=== PATIENT | male | born 1955 | race Caucasian/White ===

== ENCOUNTER 2024-11-17 05:35 | Inpatient (IN) | payer MEDICARE, BC ==
[~2024-11-17] VITALS: Ht 175.3 cm; Wt 70.5 kg
--- NOTE | 2024-11-17 05:40 | ELECTROCARDIOGRAPH REPORT ---
[facility] Test Date: 2024-11-17 Test Time: 05:37:48 Pat Name: LEILA LOJA Department: EMERGENCY ROOM Room: ORTHO 4020 Gender: M Account Officer: ABDIAS : 1955 Requested By: ROBLES LOPEZ Order Number: [id number] Reading MD: Dr. Froilan Rocha Measurements Intervals [place] Rate: 40 P: 52 OK: 206 QRS: 1 QRSD: 177 T: 182 QT: 578 QTc: 472 Interpretive Statements Sinus bradycardia Atrial premature complex Probable left atrial enlargement Left bundle branch block Electronically Signed On 11-26-2024 18:47:[address] Froilan Rocha Please click the below link to view image of tracing.
[2024-11-17] MEDS ORDERED: ROSU40TA89 PO (06:01)
[2024-11-17] MEDS ORDERED: LISI5TAB22 PO (06:01)
[2024-11-17 06:15] LABS: MEAN PLATELET VOLUME 9.8 FL (7.4-10.4); RED CELL DISTRIBUTION WIDTH 13.4 % (11.5-14.5)
--- NOTE | 2024-11-17 06:23 | Physician Documentation ---
History of Present Illness General Chief Complaint: Dizziness Stated Complaint: DIZZY M BLS Time Seen by MD: 06:01 Mode of Arrival: POV, EMS History of Present Illness Initial Comments The patient is a 69-year-old man with a history of coronary artery disease (was informed of a silent LA in 2011, two stents in 2012 and two more stents in 2014, all done it mm CR), hypertension (takes lisinopril and hyperlipidemia (takes rosuvastatin) who woke up this morning with dizziness and some shortness of breath. There has been no change in his medications. He is also on low-dose aspirin every other day. He does have some chronic bradycardia. The patient was in his usual state of health yesterday and all his symptoms began this morning. He denies any dark or bloody stools, cough, body aches, chills or fever. The patient's director agency & strategic partnerships is Dr. Nereida Omer. Medication Reconciliation Allergies: Coded Allergies: acetaminophen (Verified Allergy, Mild, HYPOTENSION, 11/17/24) hydrocodone (Verified Allergy, Mild, HYPOTENSION, 11/17/24) Scheduled Lisinopril (Lisinopril), 1 TAB PO DAILY, (Reported) Rosuvastatin Calcium (Rosuvastatin Calcium), 1 TAB PO DAILY, (Reported) Review of Systems ROS Constitutional: Denies chills, fatigue, fever, weight gain or weight loss. HEENT: Denies hearing loss, sinus pressure or visual changes. Respiratory: Mild shortness of breath. Cardiovascular: Denies chest pain, pain while walking (claudication), edema or palpitations. Gastrointestinal: Denies abdominal pain, blood in stool, constipation, diarrhea, heartburn, loss of appetite, nausea or vomiting. Genitourinary: Denies painful urination (dysuria), excessive amount of urine (polyuria) or urinary frequency. Metabolic/Endocrine: Denies cold intolerance, heat intolerance, excessive thirst (polydipsia) or excessive hunger (polyphagia). Neurological: Dizziness, especially when sitting up, nausea but no vomiting. Psychiatric: Denies anxiety or depression. Integumentary: Denies breast discharge, breast lump, hives, mole change(s), rash or skin lesion. Musculoskeletal: Denies back pain, joint pain, joint swelling or neck pain. Hematologic: Denies easily bleeding, easily bruises, lymphedema or issues with blood clots. Immunologic: Denies food allergies or seasonal allergies. Physical Exam Physical Exam Vital Signs: Temperature: 97.8, Source: Oral, Heart Rate: 52, Respiratory Rate: 12, BP: 127/57, Pulse Oximetry: 97, Weight: 70.450 Oxygen Flow Rate: 0 Physical Exam Physical Exam Vitals and nursing note reviewed. Constitutional: General: Patient is awake, alert, oriented x 4 in no acute distress and well appearing. Speech is clear and lucid. Appearance: Normal appearance. Patient is not ill-appearing, toxic-appearing or diaphoretic. HENT: Head: Normocephalic and atraumatic. Mouth/Throat: Mouth: Mucous membranes are moist. Pharynx: Oropharynx is clear. Eyes: General: No scleral icterus. Extraocular Movements: Extraocular movements intact. Pupils: Pupils are equal, round, and reactive to light. Neck: Supple, no Kernig or Brudzinski sign. Cardiovascular: Rate and Rhythm: Normal rate and regular rhythm. Heart sounds: No murmur heard. Pulmonary: Effort: No respiratory distress. Breath sounds: No wheezing, rhonchi or rales. Abdominal: General: There is no distension. Palpations: There is no fluid wave, hepatomegaly or mass. Tenderness: There is no abdominal tenderness. There is no guarding. Musculoskeletal: General: No swelling or deformity. Skin: Coloration: Skin is not jaundiced. Findings: No erythema or rash. Neurological: Mental Status: Patient is alert. Progress Results/Orders Results/Orders Vital Signs 11/17/24 11/17/24 11/17/24 11/17/24 05:37 05:43 05:43 06:01 Temp 97.8 Pulse 41 60 52 Resp 12 16 16 12 B/P (MAP) 139/58 132/54 (80) 127/57 (80) Pulse Ox 99 97 97 O2 Flow Rate 0 11/17/24 11/17/24 07:00 07:11 Pulse 44 Resp 16 B/P (MAP) 122/57 (78) Pulse Ox 98 98 O2 Delivery Room Air* O2 Flow Rate 0 0 FiO2 21 Laboratory Tests Test 11/17/24 05:58 White Blood Count 3.8 L Red Blood Count 4.99 Hemoglobin 14.6 Hematocrit 43.5 Mean Corpuscular Volume 87.2 Mean Corpuscular Hemoglobin 29.3 Mean Corpuscular Hemoglobin Concent 33.6 Red Cell Distribution Width 13.4 Platelet Count 155 Mean Platelet Volume 9.8 Neutrophils (%) (Auto) 62.4 Lymphocytes (%) (Auto) 23.9 Monocytes (%) (Auto) 9.3 Eosinophils (%) (Auto) 3.5 Basophils (%) (Auto) 0.9 Neutrophils # (Auto) 2.4 Lymphocytes # (Auto) 0.9 L Monocytes # (Auto) 0.4 Eosinophils # (Auto) 0.1 Basophils # (Auto) 0.0 CBC Comment Sodium Level 141 Potassium Level 3.8 Chloride Level 107 Carbon Dioxide Level 27.5 Anion Gap 7 L Blood Urea Nitrogen 24 H Creatinine 0.80 Estimated GFR/1.73 m2 > 90 BUN/Creatinine Ratio 30.0 H Glucose Level 126 H Calcium Level 8.5 Magnesium Level 2.1 Troponin I High Sensitivity 34 Pro-B-Type Natriuretic Peptide 898 H Albumin 3.3 L Chemistry Comments Medical Decision Making Findings EKG medically necessary in the evaluation of dizziness/shortness of breath and interpreted by me at the time of patient evaluation. Rhythm is sinus bradycardia with a rate of 40. Left bundle branch block Impression: Abnormal EKG. (I was not able to obtain a prior EKG in order to determine whether his left bundle branch block is new or pre-existing). This 69-year-old male with history of coronary artery disease presents with dizziness and some shortness of breath. He represents a high-risk for ischemia and will need admission. Heart score 5. Departure Disposition: ADMITTED INPATIENT Admitted to Inpatient Unit: to hospitalist Admission Level of Care: PCU with Tele Impression: Primary Impression: Dizziness Additional Impressions: Bradycardia SOB (shortness of breath) Condition: Stable Referrals: NO PRIMARY CARE PROVIDER (PCP) Education Educated: Patient, Family Educated regarding: diagnosis, treatment, prognosis, need for follow up Signature Scribe Signature: . Attestation: JOSE CABRERA MD Nov 17, 2024 06:23
--- NOTE | 2024-11-17 06:31 | RADIOLOGY REPORT ---
CHEST RADIOGRAPH Indication: CP Technique: Single frontal view of the chest was obtained. Comparison: None FINDINGS: Lines and Tubes: None Lungs: There is a density at the left apex. The lungs are otherwise clear. No focal consolidation. Pleura: No effusion.No pneumothorax. Cardiomediastinal contours: UnremarkableBones: No acute osseous abnormality. IMPRESSION: Density at the left apex may represent left 1st rib edge. Consolidation at the left apex is not exclu ded. CT of the chest without contrast is recommended for further evaluation.
[2024-11-17 06:34] LABS: CREATININE 0.80 MG/DL (0.60-1.10); PRO BRAIN NATRIURETIC PEPTIDE 898 PG/ML (0-125); TOTAL CARBON DIOXIDE 27.5 MMOL/L (24-32); eCRCL 84 ML/MIN; eGFR > 90 ML/MIN
[2024-11-17] MEDS ORDERED: potassium Cl 20 mEq SR tablet PO PRN ×2 (07:20)
[2024-11-17] MEDS ORDERED: potassium Cl 40MEQ/1/2NS 520ml 520 ML IV PRN (07:20)
[2024-11-17] MEDS ORDERED: magnesium sulf-water 4G/100mL 100 ML IV PRN (07:20)
[2024-11-17] MEDS ORDERED: magnesium hydroxide 30ml (MOM) UD suspension PO PRN (07:20)
[2024-11-17] MEDS ORDERED: magnesium sulf-water 2g/50mL 50 ML IV PRN (07:20)
[2024-11-17] MEDS ORDERED: magnesium Cl slow-release 64mg tablet PO PRN (07:20)
[2024-11-17] MEDS ORDERED: mag hydrox/Alum hydrox/simeth 30ml oral suspension PO PRN (07:20)
[2024-11-17] MEDS ORDERED: ondansetron/PF 4mg/2ml inj IV PRN (07:20)
[2024-11-17] MEDS: PERFLUTREN PROTEIN-A MICROSPHR (Optison) 0.22 MG/ML 3ML VIAL IV ONE (07:26)
[2024-11-17] MEDS: K and/or MAG REPLACEMENT MC SCH (07:27)
[2024-11-17] MEDS: docusate sod 100mg capsule PO SCH (07:28)
[2024-11-17] MEDS: heparin, porcine 5000 units/ml vial SQ SCH (07:51)
[2024-11-17 13:59] VITALS: BP 109/41; PULSE 46; RESP 16; TEMP 98; O2SAT 96
[2024-11-17 16:53] VITALS: BP_SYST 127; BP_SYST 128; BP_SYST 132; BP_DIAS 50; BP_DIAS 54; BP_DIAS 61; PULSE 57; PULSE 60; PULSE 61
--- NOTE | 2024-11-17 19:32 | HISTORY AND PHYSICAL-Residence ---
History & Physical Providers to CC Resident Creating Document: DEEPALI BARTLETT RES ~ History of Present Illness Reason for Admit\Complaint: Dizziness History of Present Illness A 69 year-old male with a past medical history significant for coronary artery disease s/p PCI with stents in 2011 and 2014, chronic sinus bradycardia under cardiology follow-up, and hypertension, presented with acute onset dizziness upon awakening this morning. He describes feeling lightheaded when getting out of bed, while dressing, and ambulating to the bathroom. He reports dizziness and clamminess without loss of consciousness, syncope, vertigo, vision changes, chest pain, palpitations, or diaphoresis. No falls or head trauma occurred. He notes that his blood pressure has historically been low (around 100/54), which has been stable under the care of Dr. Omer (cardiology). He has a history of a positive stress test in 2011 leading to stent placement, but he currently denies anginal symptoms. He has long-standing bradycardia, previously evaluated and followed by cardiology, and a stress test repeated four years ago was negative. In the ED: EKG: sinus bradycardia with HR ~40, prolonged DE interval. BP: 109/41 mmHg. Orthostatics: negative. Labs: Glucose 126, BNP 898, normal troponin. CXR: left apical density adjacent to the first rib Patient lives at home with his , Rewinder Operator: Dr. Omer PCP Dr. Altman Walks independently; active Allergies: Coded Allergies: acetaminophen (Verified Allergy, Mild, HYPOTENSION, 11/17/24) hydrocodone (Verified Allergy, Mild, HYPOTENSION, 11/17/24) Home Medications Home Medications Active Reported Rosuvastatin Calcium 40 Mg Tablet 1 Tab PO DAILY Lisinopril 5 Mg Tablet 1 Tab PO DAILY Past Medical History Past Medical History Coronary artery disease Status post cardiac catheterization with 2 stent placements in 2011 and 2014 Hypotension Hyperlipidemia Prostate carcinoma Past Surgical History Surgical History Comment Surgery for wrist fracture Family History Family History: Patient reports no known family medical history. Past Social History Social History Comment Smoking: Quit 20 years ago, admits to smoking about 1 pack of cigarettes for approximately 30 years prior to that Alcohol and illicit use of drugs: Denied ROS ROS Constitutional: No fever, chills, dizziness, weight gain or loss Eyes: No pain, erythema, discharge, blurring of vision ENT: No sore throat, epistaxis, tinnitus Cardiovascular: reports dizziness,. No Chest pressure, chest discomfort, palpitations, syncope, lower extremity edema, paroxysmal nocturnal dyspnea Respiratory: Shortness of breath and cough present, No hemoptysis Gastrointestinal: Normal appetite. No nausea, vomiting, diarrhea, constipation, hematemesis, abdominal pain, bloating, melena or fresh blood Musculoskeletal: No edema Integumentary: No change in skin, hair, nails. No swelling, bruising, abrasions Neurologic: No headache, neck pain, numbness or tingling of the extremities, weakness Psychiatric: No delusions, depression, loss of interest in normal activity or change in sleep pattern, hallucinations, suicidal ideations Endocrine: No fatigue, weakness, polydipsia, polyuria, change in appetite, heat or cold intolerance, sweating, dry skin Hematological: No bleeding, petechiae, bruising Allergies: No asthma or urticaria Exam Vitals: Vital Signs Date Time Temp Pulse Resp B/P (MAP) Pulse Ox O2 Delivery O2 Flow Rate FiO2 11/17/24 18:30 63 11/17/24 16:53 132/50 (77) 127/54 (78) 128/61 (83) 11/17/24 14:00 Room Air 11/17/24 13:59 98.0 16 96 11/17/24 13:23 0 11/17/24 11:50 21 General: Awake , alert, and oriented x4, resting comfortably in the bed, in no acute distress HEENT: Atraumatic, normocephalic, EOMI, anicteric sclera ; pink conjunctiva Neck: Trachea midline. Supple, full range of motion, no JVD Cardiac: Regular rhythm, regular rate with no murmurs all over the precordium. Respiratory: Equal breath sounds bilaterally, no tachypnea, no wheezing ,rub or rales, Chest wall is symmetric and without deformity. Gastrointestinal: Abdomen symmetric, non-distended, soft, non-tender, normal bowel sounds x4 quadrant, normoactive, no hepatosplenomegaly Musculoskeletal: No pedal edema, no cyanosis Neurological: Speech is clear, alert, and oriented x 4. No motor or sensory deficit, deep tendon reflexes normal, cerebellar intact. Cranial nerves II-XII intact. Skin: Warm and dry Diagnostic Data Last Recorded Lab Results: 11/17/24 0558 11/17/24 0558 Advance Care Planning Advanced Care plannin - 30 Minutes Additional Plan 1. Symptomatic Sinus Bradycardia Patient presents with dizziness/lightheadedness, HR ~40, EKG showing sinus bradycardia with prolonged DE interval. Chronic bradycardia previously noted by cardiology, but now appears symptomatic. Plan: Admit to telemetry monitoring Patient is not on any AV carlos blocking medications Continue telemetry monitoring Normal potassium and sodium levels, ordered magnesium and phosphorus; thyroid function (TSH Cardiology consult (Dr. Omer) for evaluation of need for pacemaker 2. Unstable angina Coronary Artery Disease, s/p PCI (2011, 2014) ASCVD score greater than 7.5% No chest pain currently, troponin negative. BNP mildly elevated, may suggest chronic diastolic dysfunction but no acute decompensation. Troponins negative EKG showed: Ischemic changes: T-wave inversions with Plan: Elevated proBNP of 928, but patient is currently not in volume overload Continue secondary prevention (aspirin, statin). Aspirin 81 mg daily Monitor for anginal symptoms. Repeat echocardiogram ordered Awaiting Cardiology recommendations for possible need of stress test 3. Dizziness / Presyncope Likely secondary to bradycardia and relative hypotension. Orthostatics negative, no evidence of dehydration. No focal neurologic deficits or vertigo. Plan: Manage as above with cardiac monitoring Neuro checks If dizziness persists despite HR correction, consider head imaging 4. Abnormal Chest X-ray (Left Apical Density near first rib) Could represent rib shadow, prior scarring, or pulmonary nodule. Needs further evaluation given CAD history and risk factors. Plan: Order chest CT without contrast for better characterization. Outpatient monitoring 5. Hypertension (with low-normal BP trend) BP 109/41 on presentation, chronic low readings reported. Plan: Hold antihypertensive medications temporarily until bradycardia workup complete Resume gradually as tolerated once BP stabilizes DVT Prophylaxis: Heparin SQ Encourage gradual position changes to minimize orthostatic symptoms. Monitor fluid status Code Status: Full code: Nutrition: Heart healthy diet PT: Ordered Prognosis: Guarded Disposition: Continue telemetry monitoring Deepali Bartlett MD Internal Medicine Resident, PGY-2 Date of Service: Nov 17, 2024 Billing Provider: MILKA RUBIN MD Common Visit Codes: 31122-CCLEMSN INP/OBS CARE (HIGH) Secondary Visit Codes: 75994-[id number] CARE PLAN 30 MINUTES DEEPALI BARTLETT, RES Nov 17, 2024 19:32 MILKA RUBIN MD Nov 19, 2024 20:41
[2024-11-17 20:00] VITALS: BP_SYST 120; BP_SYST 126; BP_SYST 129; BP_DIAS 61; BP_DIAS 63; PULSE 41; PULSE 49; PULSE 69
[2024-11-17 20:41] LABS: PHOSPHORUS 3.0 MG/DL (2.3-4.5)
--- NOTE | 2024-11-17 20:55 | RADIOLOGY REPORT ---
NON-CONTRAST CHEST COMPUTERIZED TOMOGRAPHY REASON FOR STUDY: Abnormal x-ray COMPARISON: DI CHEST,SINGLE VIEW on DOS: 11/17/24 TECHNIQUE: The exam was performed on a multidetector spiral scanner. Spiral scans were acquired throu gh the chest. 2-D coronal and sagittal reformatted images were provided. Radiation optimization: All CT scans at this facility use at least one of these dose optimization techniques: Automated exposure control mA and/or kV adjustment per patient size (includes targeted exams where dose is matched to cl inical indication) or iterative reconstruction. RADIATION DOSE: CTDI: 12 mGy DLP: 491 mGy-cm FINDINGS: There is no airspace disease identified. There is no pulmonary nodule or mass identified . There is no bronchiectasis or honeycombing. There is no pleural effusion. There is no pneumothora x. There is no pathologic lymphadenopathy by size criteria. The heart is borderline enlarged. There i s no pericardial effusion. There are coronary artery calcifications. There is no thoracic aortic ane urysm. No acute osseous abnormality is identified. There is degenerative change throughout the visua lized spine. There are bulky ventral confluence osteophytes at multiple levels in the midthoracic spi ne consistent with diffuse idiopathic skeletal hyperostosis. IMPRESSION: No airspace disease is identified. No pulmonary nodule or mass is identified.
[2024-11-18 04:31] LABS: MEAN PLATELET VOLUME 9.8 FL (7.4-10.4); RED CELL DISTRIBUTION WIDTH 13.4 % (11.5-14.5)
[2024-11-18 04:45] LABS: CHOL/HDL RATIO 2.0 (0.00-4.99); CREATININE 0.92 MG/DL (0.60-1.10); LDL CHOLESTEROL 56 MG/DL (50-100); TOTAL CARBON DIOXIDE 25.8 MMOL/L (24-32); eCRCL 73 ML/MIN; eGFR 81 ML/MIN
[2024-11-18 06:00] VITALS: BP 126/48; PULSE 38; RESP 16; TEMP 97.6; O2SAT 98
[2024-11-18 07:32] VITALS: BP_SYST 122; BP_SYST 126; BP_SYST 131; BP_DIAS 48; BP_DIAS 54; BP_DIAS 62; PULSE 38; PULSE 40; PULSE 44
[2024-11-18 08:00] VITALS: RESP 16; O2SAT 98
[2024-11-18 10:00] VITALS: BP 109/62; PULSE 50; RESP 16; TEMP 98.5; O2SAT 98
--- NOTE | 2024-11-18 10:10 | CARDIOLOGY REPORT ---
APPROVED REPORT EXAM: Comprehensive 2D, Doppler, and color-flow Echocardiogram. Patient Location: 4020 B Heart Rate: 40's bpm Rhythm: SINUS BRADYCARDIA Indications ABNORMAL EKG [place] 2011 STENT x2 2012 STENT x2 2014 SHORTNESS OF BREATH DIZZINESS Customer Service Representative: Brown Omer MD Previous echo: NONE AVAILABLE (AFTER HOURS) 2D Dimensions RVDd 2.9 cm LA Diam 3.5 cm IVSd 0.8 (0.7-1.1cm) LVDd 6.8 cm PWd 0.9 (0.7-1.1cm) IVSs 1.0 (0.8-1.2cm) LVDs 6.3 (2.5-4.0cm) PWs 1.0 (0.8-1.2cm) LVOT Diameter 2.08 (1.8-2.4cm) LVEF(%) 17.6 (>50%) FS (%) 8.2 % SV 43.2 ml CO 2.3 L/min M-Mode Dimensions Aortic Root 3.00 (2.2-3.7cm) Aortic Valve AoV Peak Hussein. 197.3 cm/s AoV VTI 41.8 cm AO Peak GR. 15.6 mmHg AO Mean GR. 7 mmHg LVOT VTI 25.43 cm LVOT Peak Hussein. 123.3 cm/s BIRD(VTI)/BSA 2.07 cm2/m2 BIRD (VTI) 2.07 cm2 Mitral Valve MV E Velocity 81.4 cm/s MV Peak Gr. 2 mmHg MV DECEL TIME 272 ms MV A Velocity 118.6 cm/s MV PHT 56 ms E/A Ratio 0.7 MVA (PHT) 3.93 cm2 MV VMax 77.5 cm/s LEFT VENTRICLE Dilated LV size with normal wall thickness. Overall systolic function is severely reduced. Multisegmental wall motion abnormalities. Probable ruptured chorde in LV. Cannot rule out thrombus. Reccommend clinical correlation. LVEF is 15-20%. RIGHT VENTRICLE RV is normal size and function. ATRIA The left atrium size is normal. AORTIC VALVE Trileaflet AV appears mildly sclerotic without stenosis. No insufficiency. MITRAL VALVE Mild MV annular calcification without stenosis. Trace regurgitation. TRICUSPID VALVE TV appears structurally normal with trace regurgitation. PULMONIC VALVE Pulmonic valve is not well visualized. GREAT VESSELS The aortic root is normal in size. PERICARDIUM Normal pericardium. No effusion. Other Information Study Quality: Adequate Conclusion Dilated LV size with normal wall thickness. Overall systolic function is severely reduced. Multisegmental wall motion abnormalities. Probable ruptured chorde in LV. Cannot rule out thrombus. Reccommend clinical correlation. LVEF is 15-20%. RV is normal size and function. The left atrium size is normal. Trileaflet AV appears mildly sclerotic without stenosis. No insufficiency. Mild MV annular calcification without stenosis. Trace regurgitation. TV appears structurally normal with trace regurgitation. Normal pericardium. No effusion.
--- NOTE | 2024-11-18 16:17 | PROGRESS NOTE- Residence ---
Progress Note - Resident Providers to CC Resident Creating Document: DEEPALI CHAIDEZ, GERALDINE ~ Antibiotic Timeout Antibiotic Ordered?: No Subjective Patient was seen and examined at bedside, patient denied any further episodes of dizziness overnight. He however denied chest pain and claims of significant improvement since yesterday. Awaiting Dr. SADIA Omer recommendations Objective Vital Signs Date Time Temp Pulse Resp B/P (MAP) Pulse Ox O2 Delivery O2 Flow Rate FiO2 11/18/24 08:00 16 98 Room Air 11/18/24 07:32 38 126/48 (74) 40 131/54 (79) 44 122/62 (82) 11/18/24 06:00 97.6 11/17/24 13:23 0 11/17/24 11:50 21 Result Diagram: 11/18/2441311/18/24413 Awake , alert, and oriented x4, resting comfortably in the bed, in no acute distress HEENT: Atraumatic, normocephalic, EOMI, anicteric sclera ; pink conjunctiva Neck: Trachea midline. Supple, full range of motion, no JVD Cardiac: Regular rhythm, regular rate with no murmurs all over the precordium. Respiratory: Equal breath sounds bilaterally, no tachypnea, no wheezing ,rub or rales, Chest wall is symmetric and without deformity. Gastrointestinal: Abdomen symmetric, non-distended, soft, non-tender, normal bowel sounds x4 quadrant, normoactive, no hepatosplenomegaly Musculoskeletal: No pedal edema, no cyanosis Neurological: Speech is clear, alert, and oriented x 4. No motor or sensory deficit, deep tendon reflexes normal, cerebellar intact. Cranial nerves II-XII intact. Skin: Warm and dry Advance Care Planning Advanced Care plannin - 30 Minutes Plan Plan 1. Symptomatic Sinus Bradycardia Patient presents with dizziness/lightheadedness, HR ~40, EKG showing sinus bradycardia with prolonged TN interval. Chronic bradycardia previously noted by cardiology, but now appears symptomatic. Plan: Patient is not on any AV carlos blocking medications Continue telemetry monitoring Normal potassium and sodium levels, ordered magnesium and phosphorus; thyroid function (TSH Cardiology Dr. Omer, appreciate recommendations 11/18/2024: Telemetry showed: Heart rate of 46 being the lowest, otherwise patient's heart rate was around 50-55, with left bundle-branch block Awaiting Dr. Omer's recommendations Continue monitoring vitals along with telemetry 2. Unstable angina Coronary Artery Disease, s/p PCI (2011, 2014) Severe Heart Failure with reduced EF 15- 20 % ASCVD score greater than 7.5% No chest pain currently, troponin negative. BNP mildly elevated, may suggest chronic diastolic dysfunction but no acute decompensation. Troponins negative EKG showed: Ischemic changes: T-wave inversions with LBBB (ED physician confirmed that his previous EKGs also showed LBBB) Plan: Elevated proBNP of 928, but patient is currently not in volume overload Continue secondary prevention (aspirin, statin). Aspirin 81 mg daily Monitor for anginal symptoms. Repeat echocardiogram ordered Awaiting Cardiology recommendations for possible need of stress test 11/18/2024: Lipid panel normal Echocardiogram: Dilated LV size with normal wall thickness. Overall systolic function is severely reduced. Multisegmental wall motion abnormalities. Probable ruptured chorde in LV. Cannot rule out thrombus. Reccommend clinical correlation. LVEF is 15-20%. Surgical intervention versus catheterization; based on Cardiology recommendations GDMT: Jardiance initiated, will will initiate ARBs/ MRA/ BB based on blood pressures tomorrow 3. Dizziness / Presyncope Likely secondary to bradycardia and relative hypotension. Orthostatics negative, no evidence of dehydration. No focal neurologic deficits or vertigo. Plan: Neuro checks Symptoms have resolved currently, patient denied dizziness 4. Abnormal Chest X-ray (Left Apical Density near first rib) Could represent rib shadow, prior scarring, or pulmonary nodule. Needs further evaluation given CAD history and risk factors. Plan: CT chest: Normal 5. Hypertension (with low-normal BP trend) BP 109/41 on presentation, chronic low readings reported. Plan: Hold antihypertensive medications temporarily until bradycardia resolves We will resume gradually once blood pressures stabilizes DVT Prophylaxis: Heparin SQ Code Status: Full code: Nutrition: Heart healthy diet PT: Ordered Prognosis: Guarded Disposition: Continue telemetry monitoring Deepali Chaidez MD Internal Medicine Resident, PGY-2 Date of Service: Nov 18, 2024 Billing Provider: MILKA RUBIN MD Common Visit Codes: [id number] INP/OBS CARE(HIGH) DEEPALI CHAIDEZ, RES Nov 18, 2024 16:17 MILKA RUBIN MD Nov 19, 2024 20:42
[2024-11-18 18:00] VITALS: BP 119/87; PULSE 51; RESP 14; TEMP 98.2; O2SAT 98
[2024-11-18 22:00] VITALS: BP 109/52; PULSE 55; RESP 14; TEMP 97.5; O2SAT 97
[2024-11-19] VITALS (12 sets, daily range): BP systolic 97–129; BP diastolic 39–71; PULSE 39–63; RESP 12–19; TEMP 97.5–98.1; O2SAT 94–98
[2024-11-19 06:03] LABS: MEAN PLATELET VOLUME 10.1 FL (7.4-10.4); RED CELL DISTRIBUTION WIDTH 13.4 % (11.5-14.5)
[2024-11-19 06:11] LABS: CREATININE 0.82 MG/DL (0.60-1.10); TOTAL CARBON DIOXIDE 29.0 MMOL/L (24-32); eCRCL 82 ML/MIN; eGFR > 90 ML/MIN
--- NOTE | 2024-11-19 08:09 | CONSULTATION ---
DATE OF CONSULTATION: 11/19/2024 DICTATING PHYSICIAN: Fatemeh Omer MD REASON FOR CONSULTATION: * Dizziness. * Bradycardia. * Cardiomyopathy. HISTORY OF THE PRESENT ILLNESS: The patient presented to the hospital with 4 hours of dizziness. Cardiology is being consulted because of bradycardia. The patient also recently has been complaining of some chest discomfort with exertion. The patient has a history of coronary artery disease, status post FL and stenting of the LAD x 2 in 2013 and repeat PCI in 2014. He has been doing well. His last stress test at my office in 2018 was unremarkable. PAST MEDICAL HISTORY: As in the HPI. PAST SURGICAL HISTORY: No relevant surgical history. ALLERGIES: THE PATIENT IS ALLERGIC TO [place]. SOCIAL HISTORY: . No alcohol, tobacco or drug use. PHYSICAL EXAMINATION: VITAL SIGNS: The patient is afebrile, his blood pressure is 112/52 with heart rate of 52 beats per minute. HEENT: Unremarkable. LUNGS: Clear to auscultation. HEART: S1 and S2. ABDOMEN: Benign. EXTREMITIES: No edema. NEUROLOGICAL: Grossly nonfocal. IMAGING DATA: EKG: Sinus bradycardia, left bundle branch block (known LBBB). ASSESSMENT AND PLAN: * Bradycardia. The patient is an avid cyclist and cycles 40-50 miles daily. He has known bradycardia. His 4 hours of dizziness is very unlikely related to his bradycardia. He has some physiologic bradycardia in the 40s while asleep. No pauses noted on telemetry. This is unlikely the etiology of the patient's dizziness. * Coronary artery disease, status post PCI of the LAD x 2 in 2013 with repeat PCI in 2014. The patient recently has been complaining of chest discomfort with severe exertion that is new. In view of his chest discomfort with new regional wall motion abnormalities on his echocardiogram, recommend coronary angiography. The patient is willing to proceed. The nature of the procedure, risks, benefits, alternatives, and complications were discussed with the patient. He voices understanding and wishes to proceed. * Cardiomyopathy. The patient's echocardiogram reveals a severely reduced ejection fraction of 15-20% with multisegmental wall motion abnormalities. There is mention of probable ruptured chordae in the left ventricle. No regurgitation noted. The patient is asymptomatic. We will review the patient's echocardiogram. Ejection fraction of 15-20% is unlikely ischemic. However, in view of his segmental wall motion abnormality and chest discomfort, it is reasonable to proceed with coronary angiography. We will optimize the patient's GDMT, repeat echocardiogram in 3 months, and if EF remains reduced, the patient will require an ICD. Arrangements will be made to be discharged with a LifeVest. Fatemeh Omer MD TID: [id number] RECEIPT: [id number] GABRIELLE/LARA/SABRINA
[2024-11-19 10:15] LABS: LEUKOCYTE ESTERASE ,URINE NEGATIVE (Neg); NITRITES, URINE NEGATIVE (Neg); OCCULT BLOOD,URINE NEGATIVE (Neg)
[2024-11-19 10:17] LABS: UA COLLECTION TYPE NON-SPECIFIED
[2024-11-19] MEDS ORDERED: LIDOcaine 1% (10mg/ml) 2ml vial ONE (16:14)
[2024-11-19] MEDS ORDERED: verapamil 2.5 mg/ml inj IV ONE (16:14)
[2024-11-19] MEDS ORDERED: midazolam 1 mg/ML 2ml injection ONE (16:14)
[2024-11-19] MEDS ORDERED: fentaNYL/PF 50MCG/1 ML 2ML syringe ONE (16:14)
--- NOTE | 2024-11-19 16:14 | PROGRESS NOTE- Residence ---
Progress Note - Resident Providers to CC Resident Creating Document: DEEPALI CHAIDEZ RES ~ Antibiotic Timeout Antibiotic Ordered?: No Subjective Patient was seen and examined at bedside, patient denied any further episodes of dizziness overnight. Patient to undergo left heart catheterization today. Objective Vital Signs Date Time Temp Pulse Resp B/P (MAP) Pulse Ox O2 Delivery O2 Flow Rate FiO2 11/19/24 10:00 98.1 54 18 115/55 (75) 96 Room Air 11/19/24 08:00 0.0 21 Result Diagram: 11/19/24 0533 11/19/24 0533 Awake , alert, and oriented x4, resting comfortably in the bed, in no acute distress HEENT: Atraumatic, normocephalic, EOMI, anicteric sclera ; pink conjunctiva Neck: Trachea midline. Supple, full range of motion, no JVD Cardiac: Regular rhythm, regular rate with no murmurs all over the precordium. Respiratory: Equal breath sounds bilaterally, no tachypnea, no wheezing ,rub or rales, Chest wall is symmetric and without deformity. Gastrointestinal: Abdomen symmetric, non-distended, soft, non-tender, normal bowel sounds x4 quadrant, normoactive, no hepatosplenomegaly Musculoskeletal: No pedal edema, no cyanosis Neurological: Speech is clear, alert, and oriented x 4. No motor or sensory deficit, deep tendon reflexes normal, cerebellar intact. Cranial nerves II-XII intact. Skin: Warm and dry Advance Care Planning Advanced Care plannin - 30 Minutes Plan Plan 1. Symptomatic Sinus Bradycardia Patient presents with dizziness/lightheadedness, HR ~40, EKG showing sinus bradycardia with prolonged NH interval. Chronic bradycardia previously noted by cardiology, but now appears symptomatic. Plan: Patient is not on any AV carlos blocking medications Continue telemetry monitoring Normal potassium and sodium levels, ordered magnesium and phosphorus; thyroid function (TSH Cardiology Dr. Omer, appreciate recommendations 11/18/2024: Telemetry showed: Heart rate of 46 being the lowest, otherwise patient's heart rate was around 50-55, with left bundle-branch block Awaiting Dr. Omer's recommendations Continue monitoring vitals along with telemetry 11/19/2024: Tele still shows heart rate of 40s, with no pauses Dr. Omer has been consulted As patient had episodes of dizziness for approximately 4 hours, it is unlikely that his dizziness secondary to only bradycardia Also as he had ischemic changes on EKG along with the EF of 10-15%, patient is scheduled for C today 2. Unstable angina Coronary Artery Disease, s/p PCI (2011, 2014) Severe Heart Failure with reduced EF 15- 20 % ASCVD score greater than 7.5% No chest pain currently, troponin negative. BNP mildly elevated, may suggest chronic diastolic dysfunction but no acute decompensation. Troponins negative EKG showed: Ischemic changes: T-wave inversions with LBBB (ED physician confirmed that his previous EKGs also showed LBBB) Plan: Elevated proBNP of 928, but patient is currently not in volume overload Continue secondary prevention (aspirin, statin). Aspirin 81 mg daily Monitor for anginal symptoms. Repeat echocardiogram ordered Awaiting Cardiology recommendations for possible need of stress test 11/18/2024: Lipid panel normal Echocardiogram: Dilated LV size with normal wall thickness. Overall systolic function is severely reduced. Multisegmental wall motion abnormalities. Probable ruptured chorde in LV. Cannot rule out thrombus. Reccommend clinical correlation. LVEF is 15-20%. Surgical intervention versus catheterization; based on Cardiology recommendations GDMT: Jardiance initiated, will will initiate ARBs/ MRA/ BB based on blood pressures tomorrow 11/19/2024: Patient to undergo left heart catheterization today Initiated GDM T with losartan, spironolactone 12.5 mg, carvedilol 3.125 mg, Jardiance 10 mg; titrate based on blood pressure readings Ordered LifeVest Repeat echocardiogram in 3 months, and if EF remains reduced, the patient will require an ICD. Arrangements will be made to be discharged with a LifeVest. 3. Dizziness / Presyncope Likely secondary to bradycardia and relative hypotension. Orthostatics negative, no evidence of dehydration. No focal neurologic deficits or vertigo. Plan: Neuro checks Symptoms have resolved currently, patient denied dizziness 4. Abnormal Chest X-ray (Left Apical Density near first rib) Could represent rib shadow, prior scarring, or pulmonary nodule. Needs further evaluation given CAD history and risk factors. Plan: CT chest: Normal 5. Hypertension (with low-normal BP trend) BP 109/41 on presentation, chronic low readings reported. Plan: Patient is on GDM T; losartan, carvedilol and spironolactone DVT Prophylaxis: Heparin SQ Code Status: Full code: Nutrition: Heart healthy diet PT: Ordered Prognosis: Guarded Disposition: Continue telemetry monitoring Deepali Chaidez MD Internal Medicine Resident, PGY-2 Date of Service: Nov 19, 2024 Billing Provider: MILKA RUBIN MD Common Visit Codes: [id number] INP/OBS CARE(HIGH) DEEPALI CHAIDEZ, RES Nov 19, 2024 16:14 MILKA RUBIN MD Nov 19, 2024 20:43
[2024-11-19] MEDS ORDERED: heparin 1,000unit/ml 10ml vial 10 ML ONE (16:15)
[2024-11-19] MEDS ORDERED: nitroGLYCERIN 500mcg/5mL D5W 5 ML IV ONE (16:19)
[2024-11-19] MEDS ORDERED: clopidogrel 300mg tablet ONE (17:29)
[2024-11-19] MEDS ORDERED: HYDROcodone/acetaminophen 10/325mg tab PO PRN (18:10)
[2024-11-19] MEDS ORDERED: ondansetron/PF 4mg/2ml inj IV PRN (18:10)
[2024-11-19] MEDS ORDERED: OXAZEpam 15mg capsule PO PRN (18:10)
[2024-11-19] MEDS ORDERED: HYDROcodone/acetaminophen 5mg/325mg tablet PO PRN (18:10)
[2024-11-20 02:00] VITALS: BP 111/57; PULSE 50; RESP 16; TEMP 98.2; O2SAT 99
[2024-11-20 05:00] VITALS: BP 127/59; PULSE 57; RESP 16; TEMP 97.6; O2SAT 98
[2024-11-20 05:34] LABS: MEAN PLATELET VOLUME 9.9 FL (7.4-10.4); RED CELL DISTRIBUTION WIDTH 13.3 % (11.5-14.5)
[2024-11-20 05:53] LABS: CREATININE 0.70 MG/DL (0.60-1.10); TOTAL CARBON DIOXIDE 25.4 MMOL/L (24-32); eCRCL 96 ML/MIN; eGFR > 90 ML/MIN
[2024-11-20 07:05] VITALS: RESP 16; O2SAT 98
[2024-11-20] MEDS: EMPAGLIFLOZIN 10 MG TABLET PO SCH (07:43)
[2024-11-20 10:00] VITALS: BP 122/56; PULSE 51; RESP 13; TEMP 97.2; O2SAT 97
[2024-11-20] MEDS ORDERED: EMPA10TA PO (12:19)
[2024-11-20] MEDS ORDERED: CLOP75TA34 PO (12:19)
[2024-11-20] MEDS ORDERED: FURO20TA4 PO (12:19)
[2024-11-20] MEDS ORDERED: SPIR25TA PO (12:19)
[2024-11-20] MEDS ORDERED: COR3.125T PO (12:19)
[2024-11-20] MEDS ORDERED: ASPI81TA53 PO (12:19)
[2024-11-20 12:41] VITALS: BP 132/52; PULSE 46
[2024-11-20 12:42] VITALS: BP_SYST 109; BP_SYST 129; BP_DIAS 58; BP_DIAS 61; PULSE 38
--- NOTE | 2024-11-20 19:08 | DISCHARGE SUMMARY-Residence ---
Discharge Summary Providers to CC Resident Creating Document: DEEPALI BARTLETT, RES ~ Discharge Summary Admission Diagnosis: DIZZINESS Hospital Course DATE OF ADMISSION: 11/17/2024 DATE OF DISCHARGE: 11/20/2024 Discharge Diagnosis\Comment: 1. Symptomatic Sinus Bradycardia 2. Unstable angina Coronary Artery Disease, s/p PCI (2011, 2014) Acute Severe Heart Failure with reduced EF 15- 20 % Ruptured chordae tendineae 3. Dizziness / Presyncope 4. Abnormal Chest X-ray (Left Apical Density near first rib) 5. Hypertension (with low-normal BP trend) Operations\Procedures: Cardiac catheterization with stent placement Consultants: Cardiology Complications: None Condition on DC: Stable New Medications: Furosemide (Furosemide) 20 Mg Tablet 1 TAB PO DAILY for 30 Days, #30 TAB 0 Refills Aspirin (Children's Aspirin) 81 Mg Tab.chew 81 MG PO DAILY@0830 for 30 Days, #30 TAB.CHEW Carvedilol (Carvedilol) 3.125 Mg Tablet 3.125 MG PO BID for 30 Days, #60 TAB Clopidogrel Bisulfate (Clopidogrel) 75 Mg Tablet 75 MG PO DAILY for 30 Days, #30 TAB Do not stop medication unless instructed by prescriber. Empagliflozin (Jardiance) 10 Mg Tablet 10 MG PO DAILY for 30 Days, #30 TAB Spironolactone (Aldactone) 25 Mg Tablet 12.5 MG PO DAILY@0830 for 30 Days, #15 TAB Continued Medications: Lisinopril (Lisinopril) 5 Mg Tablet 1 TAB PO DAILY Rosuvastatin Calcium (Rosuvastatin Calcium) 40 Mg Tablet 1 TAB PO DAILY Discharge Summary: HPI as per admitting physician: A 69 year-old male with a past medical history significant for coronary artery disease s/p PCI with stents in 2011 and 2014, chronic sinus bradycardia under cardiology follow-up, and hypertension, presented with acute onset dizziness upon awakening this morning. He describes feeling lightheaded when getting out of bed, while dressing, and ambulating to the bathroom. He reports dizziness and clamminess without loss of consciousness, syncope, vertigo, vision changes, chest pain, palpitations, or diaphoresis. No falls or head trauma occurred. He notes that his blood pressure has historically been low (around 100/54), which has been stable under the care of Dr. Omer (cardiology). He has a history of a positive stress test in 2011 leading to stent placement, but he currently denies anginal symptoms. He has long-standing bradycardia, previously evaluated and followed by cardiology, and a stress test repeated four years ago was negative. In the ED: EKG: sinus bradycardia with HR ~40, prolonged FL interval. BP: 109/41 mmHg. Orthostatics: negative. Labs: Glucose 126, BNP 898, normal troponin. CXR: left apical density adjacent to the first rib Patient lives at home with his , Regulatory Affairs Coordinator: Dr. Omer PCP Dr. Altman Walks independently; active Hospital course: On presentation, his heart rate was in the 40s with EKG demonstrating sinus bradycardia with first-degree AV block and LBBB.Cardiology was consulted (Dr. Omer), and the patient was monitored on continuous telemetry. Telemetry revealed persistent bradycardia (HR 4050s) without significant pauses. Electrolytes and thyroid function were within normal limits. Given the patients symptoms of prolonged dizziness, ischemic changes on EKG, and severely reduced EF on echocardiogram (1520% with multisegmental wall motion abnormalities), cardiology recommended proceeding with coronary angiography. The patient underwent left heart catheterization by Dr. Omer, which revealed significant disease, and an LCS (left coronary stent) was extended to optimize coronary flow. The procedure was completed without complications.Following intervention, the patient was started on guideline-directed medical therapy (GDMT) for heart failure with losartan, spironolactone, carvedilol, and empagliflozin (Jardiance), titrated as tolerated based on blood pressure. Aspirin and statin were continued for secondary prevention. Given the persistently reduced EF, a LifeVest was ordered for wearable defibrillator protection, with the plan to repeat echocardiogram in 3 months. If EF remains 15%, the patient will be evaluated for ICD placement. The patients dizziness improved after optimization of medical therapy. Orthostatic vitals were negative, and no focal neurological deficits were noted. A chest CT was performed for evaluation of an abnormal X-ray finding, which was normal, ruling out concerning pathology.Blood pressure remained in the low- normal range, consistent with the patients baseline, and he tolerated GDMT initiation. He remained hemodynamically stable with no recurrent chest pain or anginal symptoms.At discharge, the patient was clinically stable, ambulating without difficulty, and tolerating oral intake. He was discharged home with a LifeVest and instructions for close outpatient follow-up with cardiology (Dr. Omer) for further monitoring, GDMT titration, and repeat echocardiogram in 3 months. Imaging: Echocardiogram: Dilated LV size with normal wall thickness. Overall systolic function is severely reduced. Multisegmental wall motion abnormalities. Probable ruptured chorde in LV. Cannot rule out thrombus. Reccommend clinical correlation. LVEF is 15-20%. RV is normal size and function. The left atrium size is normal. Trileaflet AV appears mildly sclerotic without stenosis. No insufficiency. Mild MV annular calcification without stenosis. Trace regurgitation. TV appears structurally normal with trace regurgitation. Normal pericardium. No effusion. Physical examination today: Awake , alert, and oriented x4, resting comfortably in the bed, in no acute distress HEENT: Atraumatic, normocephalic, EOMI, anicteric sclera ; pink conjunctiva Neck: Trachea midline. Supple, full range of motion, no JVD Cardiac: Regular rhythm, regular rate with no murmurs all over the precordium. Respiratory: Equal breath sounds bilaterally, no tachypnea, no wheezing ,rub or rales, Chest wall is symmetric and without deformity. Gastrointestinal: Abdomen symmetric, non-distended, soft, non-tender, normal bowel sounds x4 quadrant, normoactive, no hepatosplenomegaly Musculoskeletal: No pedal edema, no cyanosis Neurological: Speech is clear, alert, and oriented x 4. No motor or sensory deficit, deep tendon reflexes normal, cerebellar intact. Cranial nerves II-XII intact. Skin: Warm and dry Laboratory Tests Test 11/19/24 05:33 11/19/24 09:30 11/20/24 04:49 White Blood Count 4.8 X10'3 5.0 X10'3 Red Blood Count 5.33 X10'6 5.27 X10'6 Hemoglobin 15.7 g/dl 15.2 g/dl Hematocrit 46.6 % 45.8 % Mean Corpuscular Volume 87.4 FL 86.9 FL Mean Corpuscular Hemoglobin 29.5 PG 28.8 PG Mean Corpuscular Hemoglobin Concent 33.8 g/dL 33.1 g/dL Red Cell Distribution Width 13.4 % 13.3 % Platelet Count 159 X10'3 151 X10'3 Mean Platelet Volume 10.1 FL 9.9 FL Neutrophils (%) (Auto) 58.9 % 63.3 % Lymphocytes (%) (Auto) 28.7 % 24.3 % Monocytes (%) (Auto) 8.9 % 8.6 % Eosinophils (%) (Auto) 2.8 % 3.0 % Basophils (%) (Auto) 0.7 % 0.8 % Neutrophils # (Auto) 2.8 X10'3 3.1 X10'3 Lymphocytes # (Auto) 1.4 X10'3 1.2 X10'3 Monocytes # (Auto) 0.4 X10'3 0.4 X10'3 Eosinophils # (Auto) 0.1 X10'3 0.2 X10'3 Basophils # (Auto) 0.0 X10'3 0.0 X10'3 CBC Comment Sodium Level 139 MMOL/L 141 MMOL/L Potassium Level 4.1 MMOL/L 3.9 MMOL/L Chloride Level 106 MMOL/L 106 MMOL/L Carbon Dioxide Level 29.0 MMOL/L 25.4 MMOL/L Anion Gap 4 10 Blood Urea Nitrogen 17 MG/DL 20 MG/DL Creatinine 0.82 MG/DL 0.70 MG/DL Estimated GFR/1.73 m2 > 90 ML/MIN > 90 ML/MIN BUN/Creatinine Ratio 20.7 28.6 Glucose Level 89 MG/DL 82 MG/DL Calcium Level 8.7 MG/DL 8.9 MG/DL Magnesium Level 2.2 MG/DL 2.0 MG/DL Total Bilirubin 0.9 MG/DL 0.9 MG/DL Aspartate Amino Transf (AST/SGOT) 25 U/L 22 U/L Alanine Aminotransferase (ALT/SGPT) 37 U/L 20 U/L Alkaline Phosphatase 89 IU/L 78 IU/L Total Protein 6.0 G/DL 5.7 G/DL Albumin 3.2 G/DL 3.1 G/DL Globulin 2.8 G/DL 2.6 G/DL Albumin/Globulin Ratio 1.1 1.2 Chemistry Comments Urine Specimen Description Non-specified Urine Color Yellow Urine Clarity Clear Urine pH 6.0 Urine Specific [place] 1.025 Urine Protein Negative mg/dl Urine Glucose (UA) Negative mg/dl Urine Ketones Negative mg/dl Urine Occult Blood Negative Urine Nitrite Negative Urine Bilirubin Negative Urine Urobilinogen 0.2 E.U/dL Urine Leukocyte Esterase Negative Urine Culture Indicated Not ind Volume Urine Centrifuged 10 ml Urine Comment Advise on discharge: - please continue aspirin and Plavix as prescribed above - please follow up with Cardiology in 2 weeks - please follow up with primary care provider regarding the following medications carvedilol, lisinopril, furosemide, spironolactone has a blood pressures has been soft all through the hospital stay and you would need further monitoring post discharge from the hospital - we have initiated very minimal doses of the above medications, but please measure blood pressure at home and stopped taking carvedilol, furosemide if sy stolic blood pressures less than 100 - please follow up with PCP exactly in 1 week regarding continuation versus discontinuation of the above medications - do not by any chance stopped taking aspirin and Plavix - repeat echocardiogram in 3 months - continue using your LifeVest - if your ejection fraction is persistently 10-15% after 3 months, he will need an ICD placement by Cardiology - call 911/go to the nearby ED if any emergencies *Problems/Diagnosis: (1) SOB (shortness of breath) Status: Acute (2) Dizziness Status: Acute Total Time Spent on D/C: > 30 Minutes Date of Service: Nov 20, 2024 Billing Provider: MILKA RUBIN MD Common Visit Codes: [id number] DISCH DAY >30min DEEPALI BARTLETT, RES Nov 20, 2024 19:08 MILKA RUBIN MD Nov 21, 2024 07:22
[2024-11-30] MEDS ORDERED: SPIR25TA5 PO (12:57)
[2024-11-30] MEDS ORDERED: CARV3.1246 PO (12:58)
[2024-11-30] MEDS ORDERED: FURO-150 PO (12:58)
[2024-11-30] MEDS ORDERED: ASPI81TA52 PO (12:58)
[2024-11-30] MEDS ORDERED: CLOP75TA34 PO (12:58)
[2024-12-02] MEDS ORDERED: DAPA10TA PO (10:33)
[2024-12-02] MEDS ORDERED: FURO20TA4 PO (10:33)
[2024-12-02] MEDS ORDERED: METO-395 PO (13:09)
--- NOTE | 2024-12-06 13:01 | CARDIOLOGY REPORT ---
DATE OF SERVICE: 11/19/2024 DICTATING PHYSICIAN: Fatemeh Omer MD CARDIAC CATHETERIZATION REPORT DATE OF STUDY: 11/19/2024 PROCEDURES: * Left heart catheterization. * Selective coronary angiography. * Left ventriculography. * Angioplasty of the circumflex coronary artery. * Stenting x 1 of the circumflex coronary artery. * Conscious sedation monitoring time for 30 minutes. INDICATION: Unstable angina. PHYSICIAN: Fatemeh Omer MD PROCEDURE: After informed consent was obtained, the patient was brought to the cardiac labor crew supervisor in a fasting state where the patient was prepped and draped in the usual sterile manner. After adequate anesthesia was obtained using 1% lidocaine to the right wrist, a 5-[place] sheath was inserted into the right radial artery using a modified Seldinger technique. Thereafter, using a cocktail of heparin, verapamil and nitroglycerin, the cocktail was given via the sheath in the radial artery to prevent coronary vasospasm and for anticoagulation. Next, using an Ultimate-2 catheter, the catheter was advanced under fluoroscopy guidance into the ascending aorta. The catheter was then manipulated to engage the left coronary system and coronary angiography of the left system was obtained. Next, the catheter was disengaged and manipulated to engage the right coronary artery and selective coronary angiography of the right coronary artery was obtained. Thereafter, the catheter was disengaged from the right coronary artery and manipulated to advance into the left ventricle where left ventriculography in the MALIN position was obtained. The catheter was then removed. Hemostasis was obtained using the radial band. Following diagnostic angiography, PCI was performed as described below. HEMODYNAMICS: For the patient's hemodynamics, please refer to the event log. Left ventricular end diastolic pressure was 8 mmHg. FINDINGS: The left main coronary artery is a normal caliber vessel with my luminal irregularities. The left anterior descending coronary artery is a medium caliber vessel. Previously deployed stents in the proximal LAD and diagonal branch of the LAD are noted that are widely patent. The circumflex coronary artery is a large caliber vessel. The ongoing circumflex after the obtuse marginal branch has a hazy 75% stenosis. The right coronary artery is tortuous and a dominant vessel with 20-30% proximal and mid vessel stenosis. Mild diffuse distal disease is also noted. Left ventricular end diastolic pressure was 8 mmHg. LV gram was not obtained. PERCUTANEOUS CORONARY INTERVENTION: Using an XBC4 guiding catheter, a 0.014 Choice PT wire was carefully navigated across the lesion. Using a 2.5 x 15 mm Trek balloon, the balloon was advanced across the lesion where it was predilated to nominal atmospheres. Thereafter, using a 4.0 x 18 mm Waqar Letcher stent, the stent was advanced across the lesion where it was deployed. Follow-up angiography revealed excellent angiographic results. IMPRESSION: * Angioplasty/stenting of a hazy 75% circumflex coronary artery with a 4.0 x 18 mm Waqar Letcher stent with excellent angiographic results. * The patient has previously deployed stents in the LAD and diagonal branch of the LAD that are widely patent. * Left ventricular end diastolic pressure is 8 mmHg. Fatemeh Omer MD TID: [id number] RECEIPT: [id number] GABRIELLE/SERA
== END 2024-11-20 15:35 | disposition home or self-care (01) | DRG 321 ==
LOC: ER 05:35 → ED HOLD 07:22 → EDBEDREQ 12:45 → ORTHO 4S 13:52
PROVIDERS: ADMIT Internal Medicine; ATTEND Internal Medicine
PROC: 027034Z Dilation of Coronary Artery, One Artery with Drug-eluting Intraluminal Device, Percutaneous Approach (ICD-10-PCS; principal; 2024-11-19)
PROC: 4A023N7 Measurement of Cardiac Sampling and Pressure, Left Heart, Percutaneous Approach (ICD-10-PCS; 2024-11-19)
PROC: B2111ZZ Fluoroscopy of Multiple Coronary Arteries using Low Osmolar Contrast (ICD-10-PCS; 2024-11-19)
PROC: B2151ZZ Fluoroscopy of Left Heart using Low Osmolar Contrast (ICD-10-PCS; 2024-11-19)
DX: I25.110 Atherosclerotic heart disease of native coronary artery with unstable angina pectoris (principal); I50.21 Acute systolic (congestive) heart failure; Z88.6 Allergy status to analgesic agent; I44.7 Left bundle-branch block, unspecified; I44.0 Atrioventricular block, first degree; I42.9 Cardiomyopathy, unspecified; I95.9 Hypotension, unspecified; I11.0 Hypertensive heart disease with heart failure; E78.5 Hyperlipidemia, unspecified; I25.2 Old myocardial infarction; Z88.5 Allergy status to narcotic agent
CPT/HCPCS: 93306; 93458; 96372; 99285; C9600; 36415; 71045; 71250; 80048; 80053; 80061; 81003; 83036; 83735; 83880; 84100; 84443; 84484; 85025; 87081; 93005; 99152; 99153; A6258; C1725; C1751; C1769; C1874; C1894; G0378; J1644; J2003; J2250; J3010; J3490; Q9967